=== PATIENT | female | born 1980 | race American Indian/Alaskan Native ===

== ENCOUNTER 2017-09-14 22:40 | Emergency (ER) | payer SELFPAY ==
[2017-09-14 23:11] VITALS: BP 131/106
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
[2017-09-15 00:43] LABS: Bilirubin,Urine NEG (Negative); Blood,Urine NEG (Negative); Color,Urine Yellow (Yellow); Mucus,Urine FEW /HPF; Protein,Urine <15 mg/dL mg/dL (Negative)
[2017-09-15 01:06] LABS: HCG Qualitative,Urine Negative (Negative)
[2017-09-15] MEDS ORDERED: ULTRAM PO ONE (01:08)
== END 2017-09-15 01:19 | disposition home or self-care (01) ==
LOC: ED 22:40
DX: S39.012A Strain of muscle, fascia and tendon of lower back, initial encounter (principal); S76.911A Strain of unspecified muscles, fascia and tendons at thigh level, right thigh, initial encounter; I10 Essential (primary) hypertension; V89.2XXA Person injured in unspecified motor-vehicle accident, traffic, initial encounter; Y93.89 Activity, other specified; Y92.89 Other specified places as the place of occurrence of the external cause; Y99.8 Other external cause status
CPT/HCPCS: 81001; 81025; 99283